=== PATIENT | male | born 1935 | race Two or more races ===

== ENCOUNTER 2018-01-26 14:26 | Emergency (ER) | payer OTHER, MEDICAID ==
[~2018-01-26] VITALS: Ht 162.6 cm; Wt 87.9 kg
[~2018-01-26 14:26] MED LIST: ALBU2.5V NPPB; ASPI-515 PO; BENZ200C48 PO; LEVO100T5 PO; LEVO500T47 PO; LEVO750T6 PO; MAGN84TA6 PO; OMEG1CAP34 PO
[2018-01-26 14:36] VITALS: BP 126/65
[2018-01-26] MEDS ORDERED: CARBAMIDE PEROXIDE EAR DROPS 6.5%, 15ML ONE (15:13)
[2018-01-26] MEDS ORDERED: CARBAMIDE PEROXIDE EAR DROPS 6.5%, 15ML LEFT EAR ONE (15:30)
[2018-01-26 15:37] LABS: BASOPHILS # (AUTO) 0.04 x10^3/uL (0-0.1); BASOPHILS % (AUTO) 1 % (0-1); EOSINOPHILS # (AUTO) 0.28 x10^3/uL (0-0.4); EOSINOPHILS % (AUTO) 4 % (1-7); LYMPHOCYTES # (AUTO) 1.25 x10^3/uL (1-3.4); LYMPHOCYTES % (AUTO) 16 % (22-44); MD NO; MEAN CORPUSCULAR HGB CONC 33.5 g/dL (33.2-36.2); MEAN CORPUSCULAR VOLUME 95.5 fL (81-97); MEAN PLATELET VOLUME 7.7 fL (7.4-10.4); MONOCYTES # (AUTO) 0.86 x10^3/uL (0.2-0.8); MONOCYTES % (AUTO) 11 % (2-9); NEUTROPHILS # (AUTO) 5.34 x10^3/uL (1.8-6.8); NEUTROPHILS % (AUTO) 69 % (42-75); PLATELET COUNT 175 x10^3/uL (130-400); RED CELL DISTRIBUTION WIDTH 15.1 % (9.4-14.8)
[2018-01-26 15:44] LABS: ALBUMIN 3.2 g/dL (3.4-5.0); ANION GAP 8 mmol/L (5-15); CALCIUM 8.3 mg/dL (8.5-10.1); CHLORIDE 112 mmol/L (98-107); CREATININE 1.19 mg/dL (0.7-1.3)
== END 2018-01-26 16:53 | disposition home or self-care (01) ==
LOC: ED 16:40
DX: H61.22 Impacted cerumen, left ear (principal); E03.9 Hypothyroidism, unspecified
CPT/HCPCS: 36415; 69209; 80048; 82040; 85025; 93005; 99285

== ENCOUNTER 2018-04-01 10:36 | Observation (INO) | payer OTHER, MEDICAID ==
[~2018-04-01] VITALS: Ht 172.7 cm; Wt 86.8 kg
[2018-04-01] MEDS ORDERED: SODIUM CHLORIDE FLUSH 10ML SYR IVF ONE (11:00)
[2018-04-01 11:39] LABS: ALANINE AMINOTRANSFERASE 12 U/L (12-78); ALBUMIN 3.2 g/dL (3.4-5.0); ANION GAP 7 mmol/L (5-15); CALCIUM 7.8 mg/dL (8.5-10.1); CHLORIDE 108 mmol/L (98-107); CREATININE 1.08 mg/dL (0.7-1.3)
[2018-04-01 11:40] LABS: BASOPHILS # (AUTO) 0.03 x10^3/uL (0-0.1); BASOPHILS % (AUTO) 1 % (0-1); EOSINOPHILS # (AUTO) 0.26 x10^3/uL (0-0.4); EOSINOPHILS % (AUTO) 4 % (1-7); LYMPHOCYTES # (AUTO) 1.41 x10^3/uL (1-3.4); LYMPHOCYTES % (AUTO) 21 % (22-44); MD NO; MEAN CORPUSCULAR HEMOGLOBIN 31.5 pg (27.5-34.5); MEAN CORPUSCULAR HGB CONC 33.4 g/dL (33.2-36.2); MEAN CORPUSCULAR VOLUME 94.5 fL (81-97); MEAN PLATELET VOLUME 8.2 fL (7.4-10.4); MONOCYTES # (AUTO) 0.68 x10^3/uL (0.2-0.8); MONOCYTES % (AUTO) 10 % (2-9); NEUTROPHILS # (AUTO) 4.37 x10^3/uL (1.8-6.8); NEUTROPHILS % (AUTO) 65 % (42-75); PLATELET COUNT 148 x10^3/uL (130-400); RED BLOOD COUNT 4.49 x10^6/uL (4.38-5.82); RED CELL DISTRIBUTION WIDTH 14.7 % (9.4-14.8)
[2018-04-01 11:43] LABS: ALKALINE PHOSPHATASE 102 U/L (45-117); TROPONIN I < 0.015 ng/mL (0.000-0.045)
[2018-04-01] MEDS ORDERED: FUROSEMIDE 40 MG/4 ML IV ONE (14:00)
[2018-04-01 14:34] VITALS: BP 143/67
[2018-04-01] MEDS ORDERED: ACETAMINOPHEN 325 MG TABLET PO PRN (15:30)
[2018-04-01] MEDS ORDERED: ONDANSETRON 2MG/ML, 2ML IVPush PRN (15:30)
[2018-04-01 18:32] VITALS: BP 125/57
[2018-04-02 03:59] VITALS: BP 103/45
[2018-04-02 05:42] LABS: ANION GAP 9 mmol/L (5-15); CALCIUM 7.9 mg/dL (8.5-10.1); CHLORIDE 109 mmol/L (98-107)
[2018-04-02 06:20] LABS: CREATININE 1.12 mg/dL (0.7-1.3)
[2018-04-02 07:05] VITALS: BP 100/53
[2018-04-02] MEDS ORDERED: ASPIRIN 81 MG TABLET EC PO SCH (09:00)
[2018-04-02] MEDS ORDERED: LEVOTHYROXINE 100 MCG TABLET PO SCH (09:00)
== END 2018-04-02 11:57 | disposition home or self-care (01) ==
LOC: ED 10:47 → INTOOBSV 12:40 → EDIP 12:40 → 3NE 14:26
PROVIDERS: ADMIT Internal Medicine; ATTEND Internal Medicine
DX: R60.0 Localized edema (principal); I25.10 Atherosclerotic heart disease of native coronary artery without angina pectoris; E03.9 Hypothyroidism, unspecified; H91.90 Unspecified hearing loss, unspecified ear; Z79.82 Long term (current) use of aspirin; Z87.01 Personal history of pneumonia (recurrent); Z87.891 Personal history of nicotine dependence
CPT/HCPCS: 36415; 71045; 80048; 80053; 83605; 83880; 84443; 84484; 85025; 93005; 93970; 96374; 99284; G0378; J1940

== ENCOUNTER 2018-05-28 14:58 | Emergency (ER) | payer MEDICARE, MEDICAID ==
[~2018-05-28] VITALS: Ht 172.7 cm; Wt 83.0 kg
--- NOTE | 2018-05-28 15:43 | NUR ---
PT PRESENTS TO ED ACCOMPANIED BY DAUGHTER. PT HAS C/O HEMATURIA FOR PAST SEVERAL DAYS, DENIES PAIN. 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 DAUGHTER IS INTERPRETING AT PT REQUEST. PT PROVIDED WITH URINAL AND INSTRUCTIONS TO PROVIDE CLEAN CATCH URINE, RN TO BLADDER SCAN AFTER URINE PROVIDED. BP AND SPO2 MONITORS IN PLACE. CALL LIGHT IN REACH.
[2018-05-28 15:50] LABS: BASOPHILS # (AUTO) 0.09 x10^3/uL (0-0.1); BASOPHILS % (AUTO) 1 % (0-1); EOSINOPHILS # (AUTO) 0.12 x10^3/uL (0-0.4); EOSINOPHILS % (AUTO) 2 % (1-7); LYMPHOCYTES # (AUTO) 1.31 x10^3/uL (1-3.4); LYMPHOCYTES % (AUTO) 17 % (22-44); MD NO; MEAN CORPUSCULAR HEMOGLOBIN 31.2 pg (27.5-34.5); MEAN CORPUSCULAR HGB CONC 33.5 g/dL (33.2-36.2); MEAN CORPUSCULAR VOLUME 93.2 fL (81-97); MONOCYTES # (AUTO) 0.87 x10^3/uL (0.2-0.8); MONOCYTES % (AUTO) 11 % (2-9); NEUTROPHILS # (AUTO) 5.32 x10^3/uL (1.8-6.8); NEUTROPHILS % (AUTO) 69 % (42-75); PLATELET COUNT 139 x10^3/uL (130-400); RED BLOOD COUNT 4.08 x10^6/uL (4.38-5.82)
[2018-05-28 16:00] LABS: ALANINE AMINOTRANSFERASE 12 U/L (12-78); ALBUMIN 3.1 g/dL (3.4-5.0); ANION GAP 7 mmol/L (5-15); CALCIUM 7.8 mg/dL (8.5-10.1); CHLORIDE 113 mmol/L (98-107); CREATININE 1.38 mg/dL (0.7-1.3)
[2018-05-28 16:03] LABS: ALKALINE PHOSPHATASE 85 U/L (45-117); TOTAL PROTEIN 6.9 g/dL (6.4-8.2)
--- NOTE | 2018-05-28 16:07 | NUR ---
pt provided urine sample, urine is bloody. post void bladder scan is 68 mL, [facility] Jimi notified. pt a&o, resps even and unlabored, no complaint at this time. daughter at bedside.
[2018-05-28 16:37] LABS: MICROSCOPIC INDICATED
--- NOTE | 2018-05-28 16:48 | NUR ---
pt resting in chair, pt a&o, resps even and unlabored. no complaint at this time. awaiting ua results and dispo. daughter at bedside.
--- NOTE | 2018-05-28 17:28 | NUR ---
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
[2018-05-28 17:38] LABS: CULTURE INDICATED? YES
--- NOTE | 2018-05-28 18:23 | NUR ---
PIV placed, CT paged to collect pt.
--- NOTE | 2018-05-28 18:40 | NUR ---
pt sleeping, resps even and unlabored. daughter at bedside. pt awaiting CT and dispo.
--- NOTE | 2018-05-28 18:43 | NUR ---
pt to CT at this time.
[2018-05-28] MEDS ORDERED: OMNIPAQUE 350 MG/ML, 100ML BOTTLE ONE (18:50)
--- NOTE | 2018-05-28 18:59 | NUR ---
PT BACK FROM CT. VSS. WAITING FOR RESULTS. 3 P'S ADDRESSED.
--- NOTE | 2018-05-28 18:59 | NUR ---
report to break HAROON Raygoza; pt remains in CT
[2018-05-28 19:37] VITALS: BP 111/61
== END 2018-05-28 19:39 | disposition home or self-care (01) ==
LOC: ED 16:34
DX: R31.0 Gross hematuria (principal); E03.9 Hypothyroidism, unspecified
CPT/HCPCS: 36415; 74177; 80053; 81001; 85025; 87086; 99284; Q9967